=== PATIENT | female | born 1945 | race Two or more races ===

== ENCOUNTER 2025-01-03 17:23 | Inpatient (IN) | payer MEDICARE, BC ==
[~2025-01-03] VITALS: Ht 165.1 cm; Wt 96.2 kg
--- NOTE | 2025-01-03 17:51 | ED.PDOC ---
Altered Mental Status HPI Comments 79-year-old female brought in by EMS presents with a chief complaint of ALOC. Patient's last known well time was 21:00 last night. of patient found patient on the floor inbetween the bed and the commode. Patient had initial work up at [facility] and was transferred to our facility. CT head was nega tive. CBC was normal, CMP was normal, Ammonia is normal, BNP is elevated, Lactic Acid was elevated at 2.2. UA was negative. Patient remembers that she had a fall last night. 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 Family History Family History: Pt Confused Social History Smoker: Pt Confused Alcohol: Pt Confused Drugs: Pt Confused Lives In: Home Constitutional: denies: chills, diaphoresis, fatigue, fever, malaise, sweats, weakness, others EENTM: denies: blurred vision, double vision, ear bleeding, ear discharge, ear drainage, ear pain, ear ringing, eye pain, eye redness, hearing loss, mouth pain, mouth swelling, nasal discharge, nose bleeding, nose congestion, nose pain, photophobia, tearing, throat pain, throat swelling, voice changes, others Respiratory: denies: cough, hemoptysis, orthopnea, SOB at rest, shortness of breath, SOB with excertion, stridor, wheezing, others Cardiovascular: denies: chest pain, dizzy spells, diaphoresis, Dyspnea on exertion, edema, irregular heart beat, left arm pain, lightheadedness, palpitations, PND, syncope, others Gastrointestinal: denies: abdomen distended, abdominal pain, blood streaked bowels, constipated, diarrhea, dysphagia, difficulty swallowing, hematemesis, melena, nausea, poor appetite, poor fluid intake, rectal bleeding, rectal pain, vomiting, others Genitourinary: denies: abnormal vagina bleeding, burning, dyspareunia, dysuria, flank pain, frequency, hematuria, incontinence, pain, , vagina discharge, urgency, others Neurological: denies: dizziness, fainting, headache, left sided numbness, left sided weakness, numbness, paresthesia, pre-existing deficit, right sided numbness, right sided weakness, seizure, speech problems, tingling, tremors, weakness, others Musculoskeletal: denies: back pain, gout, joint pain, joint swelling, muscle pain, muscle stiffness, neck pain, others Integumetry: denies: bruises, change in color, change in hair/nails, dryness, laceration, lesions, lumps, rash, wounds, others Allergic/Immunocompromised: denies: Difficulty Healing, Frequent Infections, Hives, Itching, others Hematologic/Lymphatic: denies: anemia, blood clots, easy bleeding, easy bruising, swollen glands, others Endocrine: denies: excessive hunger, excessive sweating, excessive thirst, excessive urination, flushing, intolerance to cold, intolerance to heat, unexplained weight gain, unexplained weight loss, others Psychiatric: denies: anxiety, bipolar disorder, depression, hopeless, panic disorder, schizophrenia, sleepless, suicidal, others Unable to Obtain due to: Altered Mental Status All Other Systems: Reviewed and Negative Physical Exam General Appearance: No Apparent Distress, Normal HEENT: Normal ENT Inspection, Pharynx Normal, TMs Normal Neck: Full Range of Motion, Non-Tender, Normal, Normal Inspection Respiratory: Chest Non-Tender, Lungs Clear, No Accessory Muscle Use, No Respiratory Distress, Normal Breath Sounds Cardiovascular: No Edema, No JVD, No Murmur, No Gallop, Normal Peripheral Pulses, Regular Rate/Rhythm Breast Exam: Deferred Gastrointestinal: No Organomegaly, Non Tender, No Pulsatile Mass, Normal Bowel Sounds, Soft Genitalia: Deferred Pelvic: Deferred Rectal: Deferred Extremities: No calf tenderness, Normal capillary refill, Normal inspection, Normal range of motion, Non-tender, No pedal edema Musculoskeletal : Apperance: Normal Neurologic: Alert, methods examiner II-XII nml as Tested, No Motor Deficits, Normal Affect, Normal Mood, No Sensory Deficits Cerebellar Function: Normal Reflexes: Normal Skin: Dry, Normal Color, Warm Lymphatic: No Adenopathy Was a procedure done? Was a procedure done?: No Differential Diagnosis (ALOC) Differential Diagnosis: Dehydration, Hypoglycemia, DKA, Encephalopathy, Meningitis, Sepsis, Hypoxemia, Seizure, Closed Head Injury, CVA, Mass Lesion, SAH, Drug Overdose, Heart Failure X-Ray, Labs, Meds, VS Vital Signs Date Time Temp Pulse Resp B/P (MAP) Pulse Ox O2 Delivery O2 Flow Rate FiO2 01/03/25 17:57 98.3 58 19 117/57 (77) 98 98.3 01/03/25 17:57 58 19 98 Nasal Cannula 3.0 01/03/25 17:25 48 Time of 1ST Reevaluation: 18:11 Reevaluation 1ST: Unchanged Patient Education/Counseling: Diagnosis, Treatment, Need For Follow Up Family Education/Counseling: No Family Present Comments cbc, chem, ua, head ct, were all done and were unremarkable. her cxr shows vascular congestion and bnp was elevated. pt is much more alert now, but still has hesitancy when answering questions and slightly confused. pt will be admitted here for further evaluation of the fall, and encephalopathy. EMS mentioned that she did get a new benzo prescription, so potentially, this may melvin ve been the cause of a toxic encephalopathy SEPSIS Sepsis Screen Physician Orders Electrocardigram (01/03/25 17:44) Vital Signs Date Time Temp Pulse Resp B/P (MAP) Pulse Ox O2 Delivery O2 Flow Rate FiO2 01/03/25 17:57 98.3 58 19 117/57 (77) 98 98.3 01/03/25 17:57 58 19 98 Nasal Cannula 3.0 01/03/25 17:25 48 Departure 1 Departure Time of Disposition: 18:06 Impression: Primary Impression: Toxic encephalopathy Qualified Codes: G92.9 - Unspecified toxic encephalopathy Disposition: 09 ADMITTED INPATIENT Admit to: [facility] Condition: Stable Discharged With: Self Critical Care Note Critical Care Time?: No Stability Stability form required: No Heart Score Heart Score: Heart Score Response (Comments) Value History N/A 0 EKG N/A 0 Age N/A 0 Risk Factors N/A 0 Troponin N/A 0 Total 0 I personally scribed for VEENA MEDINA MD ([email or web address]) on 01/03/25 at 17:51. Electronically submitted by Rehan Aguilar ([email or web address]). VEENA MEDINA MD Jan 03, 2025 17:51
[2025-01-03] MEDS ORDERED: ACETAMINOPHEN 325 MG TAB PO PRN (21:30)
[2025-01-03] MEDS ORDERED: HYDROcodone-ACET 5/325MG TAB PO PRN (21:30)
[2025-01-03] MEDS ORDERED: DOCUSATE SOD 100 MG CAP PO PRN (21:30)
[2025-01-03] MEDS ORDERED: ONDANSETRON HCL 4 MG/2 ML VIAL IV PRN (21:30)
[2025-01-03] MEDS: SODIUM CHLORIDE 0.9% 1,000 ML IV SCH (21:39)
[2025-01-03 21:52] LABS: Potassium 3.9 mmol/L (3.5-5.1); Sodium 144 mmol/L (136-145)
[2025-01-03 21:53] LABS: Anion Gap 8 (5-15); Carbon Dioxide 26 mmol/L (20-31); Hematocrit 38.5 % (36.0-46.0); Hemoglobin 12.8 g/dL (12.2-16.2); Mean Corpuscular Hemoglobin 29.1 pg (28.0-32.0); Mean Corpuscular Volume 87.2 fL (80.0-100.0); Nucleated Red Blood Cells % 0.1 %
[2025-01-03 21:54] LABS: Calcium 9.8 mg/dL (8.7-10.4)
[2025-01-03 21:59] LABS: BUN/Creatinine Ratio 20.5 (10.0-20.0); Blood Urea Nitrogen 17 mg/dL (9-23)
[2025-01-03 22:01] LABS: Chloride 110 mmol/L (98-107); Glucose 127 mg/dL (74-106)
--- NOTE | 2025-01-03 22:38 | DVHHP2 ---
History of Present Illness Reason for Visit: Toxic encephalopathy History of Present Illness The patient is a 79-year-old female with past medical history of CHF, hypertension, hyperlipidemia, DM, and thyroid disease who presented to [facility] ED for evaluation of altered level of consciousness. As reported by , patient was found on the floor in between the bed and commode altered. Patient had initial work up at [facility] with negative head CT and was transferred to our facility. Patient was seen and evaluated in the ED, laboratory data shows WBC 6.8, platelets 180, sodium 144, potassium 3.9, BUN 17, creatinine 0.83, glucose 127, calcium 9.8, CK 292, troponin 72, blood pressure 121/57, heart rate 62, temperature 98.3 F, O2 saturation 96% on oxygen. Please see medication orders section in the computer. On my assessment, patient denied chest pain, no headache, dizziness, alert oriented x3, no shortness of breath, no nausea, no vomiting, no fever, no chills. Patient was admitted for further evaluation and medical management. Past Medical History CHF, HTN, HLD, DM, thyroid disease, Depression. Past Surgical History Denies all surgeries Family History Reviewed, noncontributory to the management of this case. Past Social History The patient lives at home, denies smoking, alcohol or illicit drugs abuse. Review of Systems Constitutional: Yes: Weakness; No: Fever, Chills, Sweats, Malaise, Other Eyes: No: Pain, Vision change, Conjunctivae inflammation, Eyelid inflammation, Other, Redness ENT: No: Ear pain, Ear discharge, Nose pain, Nose discharge, Nose congestion, Mouth pain, Mouth swelling, Throat pain, Throat swelling, Other Respiratory: Shortness of breath; No: Cough, Dry, SOB with excertion, Wheezing, Hemoptysis, Pleuritic Pain, Sputum, Wheezing, Other Cardiovascular: No: Chest Pain, Palpitations, Orthopnea, Paroxysmal Noc. Dyspnea, Edema, Lt Headedness, Other Gastrointestinal: No: Nausea, Vomiting, Abdominal Pain, Diarrhea, Constipation, Melena, Hematochezia, Other Genitourinary: No Dysuria, No Frequency, No Incontinence, No Hematuria, No R etention, No Other Musculoskeletal: No: other, neck pain, shoulder pain, arm pain, back pain, hand pain, leg pain, foot pain Skin: No: Rash, Lesions, Jaundice, Bruising, Other Neurological: Confusion; No: Weakness, Numbness, Incoordination, Change in speech, Seizures, Other Allergies: Coded Allergies: Penicillins (Verified Allergy, Unknown, 01/04/25) Sulfa Antibiotics (Verified Allergy, Unknown, 01/04/25) Medications Current Medications Medications Dose Ordered Sig/Massimo Route Start Time Stop Time Status Last Admin Dose Admin Aspirin 81 mg DAILY PO 01/04/25 10:00 Sodium Chloride 1,000 ml @ 60 mls/hr [id number] IV 01/03/25 21:30 01/03/25 21:39 60 MLS/HR Acetaminophen/ Hydrocodone Bitart 1 tab Q4HP PRN PO 01/03/25 21:30 Ondansetron HCl 4 mg Q4HP PRN IV 01/03/25 21:30 Docusate Sodium 100 mg BIDPRN PRN PO 01/03/25 21:30 Acetaminophen 650 mg Q6HP PRN PO 01/03/25 21:30 Exam Vital Signs Vital Signs Date Time Temp Pulse Resp B/P (MAP) Pulse Ox O2 Delivery O2 Flow Rate FiO2 01/03/25 22:00 98.5 63 16 128/57 (80) 98 98.5 01/03/25 19:20 Nasal Cannula* 2 28 General Appearance: Alert, Oriented X3, Cooperative, No acute distress HEENT: Atraumatic, PERRLA, EOMI, Mucous membr. moist/pink Respiratory: Clear to auscultation, Normal air movement Cardiovascular: Regular rate, Normal S1, Normal S2, No murmurs Abdominal: Normal bowel sounds, Soft, No tenderness, No hepatospenomegaly, No masses Extremities: No clubbing, No cyanosis, No edema, Normal pulses, No tenderness/swelling Skin: No rashes, No breakdown, No significant lesion Neuro: Normal speech, Normal tone, Sensation intact, Cranial nerves 3-12 NL, Reflexes 2+, Other (Generalized weakness) Psych/Mental Status: Mental status NL, Mood NL Labs/Xrays Labs Test 01/03/25 21:30 01/03/25 19:53 01/03/25 18:34 Range/Units Troponin I High Sensitivity 68 *H </=34 ng/L White Blood Count 6.8 4.4-10.8 10^3/uL Red Blood Count 4.41 4.0-5.20 10^6/uL Hemoglobin 12.8 12.2-16.2 g/dL Hematocrit 38.5 36.0-46.0 % Mean Corpuscular Volume 87.2 80.0-100.0 fL Mean Corpuscular Hemoglobin 29.1 28.0-32.0 pg Mean Corpuscular Hemoglobin Concent 33.3 32.0-36.0 g/dL Red Cell Distribution Width 15.4 H 11.8-14.3 % Platelet Count 180 140-450 10^3/uL Mean Platelet Volume 8.2 6.9-10.8 fL Neutrophils (%) (Auto) 72.8 37.0-80.0 % Lymphocytes (%) (Auto) 17.0 10.0-50.0 % Monocytes (%) (Auto) 8.1 0.0-12.0 % Eosinophils (%) (Auto) 1.5 0.0-7.0 % Basophils (%) (Auto) 0.6 0.0-2.0 % Neutrophils # (Auto) 5.0 1.6-8.6 10 ^3/uL Lymphocytes # (Auto) 1.2 0.4-5.4 10 ^3/uL Monocytes # (Auto) 0.5 0-1.3 10 ^3/uL Eosinophils # (Auto) 0.1 0-0.8 10 ^3/uL Basophils # (Auto) 0 0-0.2 10 ^3/uL Nucleated Red Blood Cells 0.1 % Sodium Level 144 136-145 mmol/L Potassium Level 3.9 3.5-5.1 mmol/L Chloride Level 110 H 98-107 mmol/L Carbon Dioxide Level 26 20-31 mmol/L Anion Gap 8 5-15 Blood Urea Nitrogen 17 9-23 mg/dL Creatinine 0.83 0.550-1.02 mg/dL Glomerular Filtration Rate Calc 72 >90 mL/min BUN/Creatinine Ratio 20.5 H 10.0-20.0 Serum Glucose 127 H 74-106 mg/dL Calcium Level 9.8 8.7-10.4 mg/dL Creatine Kinase 292 H 34-145 U/L Assessment/Plan Assessment/Plan Toxic encephalopathy Generalized weakness Unspecified toxic encephalopathy Plan 1. Admit to telemetry unit 2. Breathing treatment 3. Pain control management 4. Management of fluids and electrolytes 5. Consultation for hospitalist 6. Diagnostic tests chest x-ray 7. DVT prophylaxis-on SCDs 8. Repeat labs CBC, CMP in a.m. 9. Continue with current medical management 10. Treatment plan discussed with patient and RN. Patient verbalized under standing. Plan discussed with: Patient, Other (RN) My Orders Orders - VICENTA PETER DNP Procedure Category Date Status Time Aspirin Tablet PHA 01/04/25 In Process 10:00 Allergies SURJIT 01/03/25 In Process 21:26 Code Status CODE 01/03/25 Transmitted 21:26 Sodium Chloride 0.9% PHA 01/03/25 In Process 21:30 Oxygen Per Hour RT 01/03/25 Transmitted 21:26 Hydrocodone-Acet PHA 01/03/25 In Process 5/325mg Tab ([place] 21:30 Ondansetron Hcl PHA 01/03/25 In Process (Zofran) 21:30 Docusate Sodium PHA 01/03/25 In Process Capsule (Colace 21:30 Fall Risk Precautions SURJIT 01/03/[address] 21:26 Complete Blood Count LAB 01/04/25 Verified 04:00 Comprehensive LAB 01/04/25 Verified Metabolic Panel 04:00 Cardiac DIET 01/04/25 Transmitted Diet-2gna,Lofat,Lochol Breakfast Condition: Serious SURJIT 01/03/25 In Process 21:26 Acetaminophen Tablet PHA 01/03/25 In Process (Tylenol Tablet) 21:30 Maintain Bed Rest SUJRIT 01/03/25 In Process 21:26 Sequential SURJIT 01/03/25 In Process Compression Device Problem List: (1) Toxic encephalopathy (2) Generalized weakness (3) Unspecified toxic encephalopathy Date of Service: Jan 03, 2025 Billing Provider: VICENTA PETER DNP Common Visit Codes: [id number] INP/OBS CARE (HIGH) VICENTA PETER DNP Jan 03, 2025 22:38
[2025-01-03] MEDS ORDERED: MORPHINE SULFATE INJ 2 MG/ml SYRG IV PRN (22:45)
[2025-01-03] MEDS ORDERED: NITROGLYCERIN 0.4 MG SL TAB SL PRN (22:45)
[2025-01-04] MEDS ORDERED: DEXTROSE (50%) 50ML SYRG IV PRN (03:30)
[2025-01-04 06:38] LABS: Hematocrit 36.2 % (36.0-46.0); Hemoglobin 12.4 g/dL (12.2-16.2); Mean Corpuscular Hemoglobin 29.8 pg (28.0-32.0); Mean Corpuscular Volume 87.1 fL (80.0-100.0); Nucleated Red Blood Cells % 0.0 %
[2025-01-04 06:49] LABS: Alanine Aminotransferase 11 U/L (7-40); Albumin 3.6 g/dL (3.2-4.8); Alkaline Phosphatase 66 U/L (46-116); Anion Gap 7 (5-15); BUN/Creatinine Ratio 18.7 (10.0-20.0); Blood Urea Nitrogen 14 mg/dL (9-23); Calcium 8.8 mg/dL (8.7-10.4); Carbon Dioxide 28 mmol/L (20-31); Glucose 96 mg/dL (74-106); Potassium 4.7 mmol/L (3.5-5.1); Sodium 144 mmol/L (136-145); Total Protein 5.7 g/dL (5.7-8.2)
[2025-01-04 06:50] LABS: Bilirubin, Total 0.7 mg/dL (0.2-1.0)
[2025-01-04] MEDS: LEVOTHYROXINE SODIUM 25 MCG TAB PO SCH (06:57)
[2025-01-04] MEDS: InsuLIN REG 1unit/0.01ml Soln (100units/ml) SC SCH (07:00)
[2025-01-04 07:05] LABS: Chloride 109 mmol/L (98-107)
[2025-01-04] MEDS: ACCU-CHEK COMFORT CURVE STRIP VI SCH (07:08)
[2025-01-04] MEDS: SERTRALINE HCL 50 MG TAB PO SCH (07:39)
[2025-01-04 08:00] VITALS: PULSE 63; RESP 18; O2SAT 96
[2025-01-04 09:47] LABS: Urine Protein, UAD Negative (Negative)
[2025-01-04 11:21] LABS: Amphetamine Screen, Urine Neg (NEGATIVE); Barbiturate Scree,Urine Neg (NEGATIVE); Benzodiazephine Screen, Urine Pos (NEGATIVE); Cannabinoid Screen, Urine Neg (NEGATIVE); Cocaine Screen, Urine Neg (NEGATIVE); Opiate Scree,Urine Neg (NEGATIVE); Phencyclidine Screen, Urine Neg (NEGATIVE)
[2025-01-04 13:17] VITALS: BP 132/50; PULSE 55; RESP 18; TEMP 98.1; O2SAT 97
[2025-01-04 13:27] VITALS: BP 135/72; PULSE 60; RESP 18; TEMP 98.5; O2SAT 96
--- NOTE | 2025-01-04 13:38 | DVHPNRES ---
Progress Note Date Seen: Jan 04, 2025 Resident Creating Document: ROYA VENEGAS RESIDENT Medical Necessity Reason Pt with a Central, PICC or Fol: No Subjective Review of Systems Did not share any complaint at this moment Objective vital signs Vital Sign Date Time Temp Pulse Resp B/P (MAP) Pulse Ox O2 Delivery O2 Flow Rate FiO2 01/04/25 13:17 98.1 55 18 132/50 (77) 97 98.1 01/04/25 08:00 Room Air* 0 21 Total Intake and Output 01/03/25 01/03/25 01/04/25 15:00 23:00 07:00 Intake Total 60 ml 180 ml Balance 60 ml 180 ml medications Current Medications Medications Dose Ordered Sig/Massimo Route Start Time Stop Time Status Last Admin Dose Admin Aspirin 81 mg DAILY PO 01/04/25 10:00 01/04/25 07:39 81 MG Acetaminophen/ Hydrocodone Bitart 1 tab Q4HP PRN PO 01/03/25 21:30 Ondansetron HCl 4 mg Q4HP PRN IV 01/03/25 21:30 Docusate Sodium 100 mg BIDPRN PRN PO 01/03/25 21:30 Acetaminophen 650 mg Q6HP PRN PO 01/03/25 21:30 Nitroglycerin 0.4 mg Q5MINP PRN SL 01/03/25 22:45 Morphine Sulfate 2 mg Q30M PRN IV 01/03/25 22:45 Diagnostic Test (Pha) 1 strip ACHS 01/04/25 07:00 01/04/25 11:30 1 STRIP Insulin Human Regular ACHS SC 01/04/25 07:00 Dextrose 50 ml UD PRN IV 01/04/25 03:30 Levothyroxine Sodium 137 mcg QAM@0600 PO 01/04/25 06:00 01/04/25 06:57 137 MCG Sertraline HCl 50 mg DAILY PO 01/04/25 10:00 01/04/25 07:39 50 MG Furosemide 20 mg DAILY IV 01/05/25 10:00 UNV Examination GENERAL: Not in acute distress. Obese HEENT: EOMI, Moist mucous membranes. No scleral icterus. No cervical lymphadenopathy. LUNGS: Bilateral mild crackles. No accessory muscle use. CARDIOVASCULAR: Regular rate and rhythm. No murmur. No JVD. ABDOMEN: Soft, nontender and nondistended. No palpable masses. EXTREMITIES: B/L LE edema. Nontender. SKIN: No rashes or lesions. Warm. NEUROLOGIC: Alert and oriented X3 laboratory and microbiology Laboratory Tests 01/04/25 06:18 Test 01/04/25 06:18 Range/Units Serum Glucose 96 74-106 mg/dL Labs and/or images reviewed: Labs reviewed by me, Image(s) reviewed by me Problem List/Assessment/Plan Problem List/Assessment/Plan # Syncope likely vasovagal # Rule out Cardiac cause # Rule out neurological cause - Order brain MRI to rule out stroke - Neurology consult - Monitor for signs of dehydration and encourage fluid intake - EKG - Assess for any cardiac arrhythmias - Consult cardiology # Urinary Tract Infection (UTI) - Start antibiotic therapy for UTI - Urine culture. # Acute on Congestive systolic/ diastolic Heart Failure #Chronic hypoxic respiratory failure due to congestive heart failure; home oxygen 2 L/min - Continue current management, including home oxygen at 2 liters per minute - Monitor for signs of fluid overload or worsening heart failure - Echocardiogram # Hypothyroidism - Continue levothyroxine dose to 137mcg daily - Monitor for symptoms of hyperthyroidism (e.g., racing heart, weight loss) - TSH 0.03 - Ordered Free T4 - Follow up on thyroid function tests # Hypertension - Continue current antihypertensive medications - Monitor blood pressure # Arthritis - Assess pain levels and functional limitations - Consider pain management options if needed - Physical Therapy Goal of care discussed with the patient and family for 20 minutes: Full code Plan discussed with Dr. Flores. Plan discussed with: Patient, Spouse, Daughter, Other (Nurse) My Orders My Orders Orders - ROYA VENEGAS RESIDENT Procedure Category Date Status Time Electrocardigram EKG 01/04/25 Logged 13:02 Brain Head Wo Contrast MRI 01/04/25 Logged 13:02 Free T4 (Free LAB 01/04/25 In Process Thyroxine) 13:07 Furosemide Injection PHA 01/05/25 Logged (Lasix Injection) 10:00 * Cardiology Consult CONS 01/04/25 Transmitted 13:29 * Neurology Consult CONS 01/04/25 Transmitted 13:29 Echo 2d Mode Cardiac US 01/04/25 Logged DOP 13:30 Addendum Addendum Addendum I was physically present for the casper portions of the service provided to patient by THE RESIDENT. I have reviewed the documentation, discussed the case with resident and agree with the resident's documentation except as noted. Also the patient's clinical case was discussed with the patient's nurse. This medical document was created using an electronic medical record system with computerized dictation system. Although this document has been carefully reviewed, there might still be some phonetic and typographical errors. These areas are purely typographical due to imperfections of the software programs, and do not reflect any compromise in the patient's medical care. Late signature. Date of Service: Jan 04, 2025 Billing Provider: HARRIET FLORES MD Common Visit Codes: [id number] INP/OBS CARE(HIGH) Secondary Visit Codes: [id number] CARE PLAN 30 MINUTES (20 minutes) ROYA VENEGAS RESIDENT Jan 04, 2025 13:38 HARRIET FLORES MD Jan 05, 2025 16:10
--- NOTE | 2025-01-04 16:44 | DVH ---
EXAM: MRI BRAIN HEAD WO CONTRAST INDICATION: R/O stroke TECHNIQUE: Multiplanar, multisequence imaging of the brain without contrast. COMPARISON: None FINDINGS: [PARENCHYMA]: Infarct predominantly of the inferior anterior frontal lobe measuring 3.9 x 2.8 cm whic h may be contributory to expressive aphasia affecting Broca's area. Question punctate area of the add itional diffusion restriction along the left periventricular white matter. Associated FLAIR signal. N o susceptibility artifact. [VENTRICLES]: No hydrocephalus. [EXTRA-AXIAL SPACES]: No extra-axial fluid collections. [FLOW VOIDS]: The flow voids are intact. [EXTRA-CRANIAL STRUCTURES]: The bony structures are intact. Trace fluid in bilateral mastoid air cell s. IMPRESSION: 1. Infarct predominantly of the inferior anterior frontal lobe measuring 3.9 x 2.8 cm which may be co ntributory to expressive aphasia affecting Broca's area.
[2025-01-04 17:13] VITALS: BP 132/65; PULSE 72; RESP 18; TEMP 98.6; O2SAT 94
[2025-01-04 20:00] VITALS: PULSE 63; RESP 18; O2SAT 96
[2025-01-04 21:00] VITALS: BP 139/75; PULSE 65; RESP 18; TEMP 98.3; O2SAT 96
--- NOTE | 2025-01-04 21:28 | DVHSR ---
APPROVED REPORT EXAM: Two-dimensional and M-mode echocardiogram with Doppler and color Doppler. Blood Pressure: 132/50 mmHg INDICATION CHF RISK FACTORS Obesity: Height: 5'5", Weight: 216 DIMENSIONS LVDd4.6 (3.8-5.7cm)LA (2D)4.0 (1.9-4.0cm)Aortic Root3.4 (2.0-3.7cm) LVDs3.0 (2.5-4.0cm)LA (MM) (1.9-4.0cm)Aortic Cusp Exc1.9 (1.5-2.0cm) EF (%) 60.0 (55-70%)Rt. Atrium5.0 (1.9-4.0cm)Asc. Aorta cm IVSd1.2 (0.7-1.1cm)RV (D) (1.8-2.4cm) PWd1.2 (0.7-1.1cm) Mitral Valve MitralMitral Stenosis E wave1.10m/sMV Mean GR.mmHg A wave0.99m/sMV Peak GR.mmHg E/A ratio1.12D MVAcm2 DECEL [id number] 1/2 Timems Aortic Valve Aortic ValveAortic Stenosis V11.24m/Julia Mean GR.12mmHg V22.34m/Julia Peak GR.22mmHg LVOT Diameter2.1 (1.8-2.4cm)Doppler AVA1.83cm2 Pulmonic Valve V21.76m/s Tricuspid Valve TR Velocity2.25m/s [id number] Other Information Technically limited study due to body habitus. Conclusion MODERATE DEGREE LVH AND MODERATE DEGREE LV DIASTOLIC DYSFUNCTION LV EF IS 65% AND IS NORMAL SLIGHTLY DILATED LA MODERATELY DILATED RV HEAVILY CALCIFIED AORTIC LEAFLETS PEAK GRADIENT ACROSS AORTIC VALVE IS 22 MM OF HG AND MEAN GRADIENT IS 12 MM OF HG AORTIC VALVE AREA IS 1.83 CM SQUARE AND IS MILD AORTIC STENOSIS NO EFFUSION
[2025-01-05] VITALS (8 sets, daily range): BP systolic 118–147; BP diastolic 76–94; PULSE 55–109; RESP 16–20; TEMP 97.2–98.5; O2SAT 95–99
[2025-01-05 07:26] LABS: Potassium 4.4 mmol/L (3.5-5.1); Sodium 142 mmol/L (136-145)
[2025-01-05 07:27] LABS: Anion Gap 9 (5-15); Carbon Dioxide 26 mmol/L (20-31)
[2025-01-05 07:28] LABS: Calcium 9.3 mg/dL (8.7-10.4)
[2025-01-05 07:32] LABS: BUN/Creatinine Ratio 16.9 (10.0-20.0); Blood Urea Nitrogen 11 mg/dL (9-23); Chloride 107 mmol/L (98-107); Glucose 81 mg/dL (74-106)
[2025-01-05 07:44] LABS: Hematocrit 35.9 % (36.0-46.0); Hemoglobin 12.0 g/dL (12.2-16.2); Mean Corpuscular Hemoglobin 29.4 pg (28.0-32.0); Mean Corpuscular Volume 88.1 fL (80.0-100.0); Nucleated Red Blood Cells % 0.5 %
[2025-01-05] MEDS ORDERED: cefTRIAXone 1GM/50ML D5W 50 ML IV SCH (09:00)
[2025-01-05] MEDS: FUROSEMIDE 20 MG/2 ML VIAL IV SCH (10:33)
--- NOTE | 2025-01-05 14:20 | DVHPN2 ---
Subjective Patient denies any symptoms at this time. Reviewed: Care Plan, H&P, Labs, Medications Changes from previous H/P or p: No Changes General: Per HPI Eyes: No Pain, No Vision change, No Conjunctivae inflammation, No Eyelid inflammation, No Other, No Redness ENT: No Ear pain, No Ear discharge, No Nose pain, No Nose discharge, No Nose congestion, No Mouth pain, No Mouth swelling, No Throat pain, No Throat swelling, No Other Cardiovascular: No Chest Pain, No Palpitations, No Orthopnea, No Paroxysmal Noc. Dyspnea, No Edema, No Lt Headedness, No Other Respiratory: No Cough, No Dry; Shortness of breath; No SOB with excertion, No Wheezing, No Hemoptysis, No Pleuritic Pain, No Sputum, No Other Gastrointestinal: No Nausea, No Vomiting, No Abdominal Pain, No Diarrhea, No Constipation, No Melena, No Hematochezia, No Other Genitourinary: No Dysuria, No Frequency, No Incontinence, No Hematuria, No Retention, No Other Musculoskeletal: No other, No neck pain, No shoulder pain, No arm pain, No back pain, No hand pain, No leg pain, No foot pain Skin: No Rash, No Lesions, No Jaundice, No Bruising, No Other Objective Vitals Vital Signs Date Time Temp Pulse Resp B/P (MAP) Pulse Ox O2 Delivery O2 Flow Rate FiO2 01/05/25 13:00 98.1 63 18 118/82 (94) 95 98.1 01/05/25 08:10 Nasal Cannula* 2 28 Intake/Output Intake and Output 01/05/25 07:00 Intake Total 1190 ml Output Total 900 ml Balance 290 ml Intake Oral 950 ml IV Total 240 ml Output Urine Total 900 ml # Bowel Movements 1 General Appearance: Alert, Oriented X3, Cooperative, mild distress HEENT: Atraumatic, PERRLA Cardiovascular: Normal S1, Normal S2 Back: Flank Tenderness, Midline Tenderness Musculoskeletal: Normal sensory function, Normal motor function Neuro: Normal speech Skin: Dry, Intact Psych/Mental Status: Mental status NL, Mood NL Medications Current Medications Medications Dose Ordered Sig/Massiom Route Start Time Stop Time Status Last Admin Dose Admin Aspirin 81 mg DAILY PO 01/04/25 10:00 01/05/25 10:33 81 MG Acetaminophen/ Hydrocodone Bitart 1 tab Q4HP PRN PO 01/03/25 21:30 Ondansetron HCl 4 mg Q4HP PRN IV 01/03/25 21:30 Docusate Sodium 100 mg BIDPRN PRN PO 01/03/25 21:30 Acetaminophen 650 mg Q6HP PRN PO 01/03/25 21:30 Nitroglycerin 0.4 mg Q5MINP PRN SL 01/03/25 22:45 Morphine Sulfate 2 mg Q30M PRN IV 01/03/25 22:45 Diagnostic Test (Pha) 1 strip ACHS 01/04/25 07:00 01/05/25 10:45 1 STRIP Insulin Human Regular ACHS SC 01/04/25 07:00 Dextrose 50 ml UD PRN IV 01/04/25 03:30 Levothyroxine Sodium 137 mcg QAM@0600 PO 01/04/25 06:00 01/05/25 05:59 137 MCG Sertraline HCl 50 mg DAILY PO 01/04/25 10:00 01/05/25 10:32 50 MG Furosemide 20 mg DAILY IV 01/05/25 10:00 01/05/25 10:33 20 MG Levofloxacin/ Dextrose 100 ml @ 100 mls/hr DAILY IV 01/05/25 10:00 01/05/25 10:22 100 MLS/HR Ceftriaxone Sodium 50 ml @ 100 mls/hr DAILY@09 IV 01/05/25 09:00 UNV Atorvastatin Calcium 40 mg HS PO 01/05/25 22:00 Laboratory Results Laboratory Tests 01/05/25 05:04 Chemistry Test 01/05/25 05:04 Calcium Level 9.3 mg/dL (8.7-10.4) Lipid panel Test 01/05/25 05:04 Cholesterol Level Pending HDL Cholesterol Pending Triglycerides Level Pending Urinalysis Test 01/04/25 09:24 Urine Color Yellow (Yellow) Urine Clarity Hazy (Clear) H Urine pH 5.5 (5.0-9.0) Urine Specific [place] 1.024 (1.001-1.035) Urine Protein Negative (Negative) Urine Ketones Trace (Negative) Urine Blood Negative /uL (Negative) Urine Nitrite 2+ (Negative) H Urine Bilirubin Negative (Negative) Urine Urobilinogen Normal mg/dL (Negative) Urine Leukocyte Esterase 2+ /uL (Negative) Urine RBC 2 /hpf (0 - 4) Urine Microscopic WBC 21 /HPF (0-5) H Urine Squamous Epithelial Cells Few /hpf (<5) Urine Bacteria Few /hpf (None Seen) H Urine Mucus Few (None Seen) Urine Glucose Normal mg/dL (Normal) Microbiology Microbiology Date/Time Source Procedure Growth Status 01/04/25 09:24 Urine - [place] Urine Culture - Preliminary Resulted Labs and/or images reviewed: Labs reviewed by me, Image(s) reviewed by me Assessment/Plan Assessment/Plan Impression: -acute CVA -obesity -probable degenerative joint disease in right hip and right knee -dyslipidemia -primary hypertension -complicated cystitis -toxic encephalopathy ruled out. Altered mental status secondary to acute CVA Plan: -neurology consultation -MRI reviewed. Acute stroke noted -continue aspirin -add atorvastatin -add Questran for noted BMs -continue Levaquin, urine culture pending -carotid Doppler study, lipid panel -long discussion made with patient's family regarding MRI findings. All questions answered Total time spent with patient discussing and formulating plan of care: 35 minutes. Total time spent with patient and family regarding advance care plannin minutes. This medical document was created using an electronic medical record system with [employer] dictation system. Although this document has been carefully reviewed, there may still be some phonetic and typographical errors. These areas are purely typographical due to imperfections of the software programs, and do not reflect any compromise in the patient's medical care. Plan discussed with: Patient, Spouse, Daughter, Other (RN) My Orders Orders - CRISTIN DALE NP Procedure Category Date Status Time Carotid Duplx W Color US 01/05/25 Logged DOP 13:55 Lipid Panel LAB 01/05/25 In Process 13:55 Atorvastatin (Lipitor) PHA 01/05/25 In Process 22:00 Pt Request For Service PT 01/05/25 Logged 13:55 Date of Service: Jan 05, 2025 Billing Provider: CRISTIN DALE NP Common Visit Codes: 92946-[id number] INP/OBS CARE(HIGH) Secondary Visit Codes: [id number] CARE PLAN 30 MINUTES CRISTIN DALE NP Jan 05, 2025 14:20
[2025-01-05 14:27] LABS: Triglycerides 85 mg/dL (< 150)
[2025-01-05 14:29] LABS: Cholesterol 112 mg/dL (< 200); HDL Cholesterol 41 mg/dL (40-59)
--- NOTE | 2025-01-05 14:40 | DVH ---
Carotid Duplex Date: 01/05/2025 02:14 PM Clinical History: acute cva; syncope Comparison: None Technique: Duplex Doppler evaluation of the extracranial carotid and vertebral arteries including col or Doppler and spectral/pulsed waveform analysis was performed. Findings: RIGHT SIDE: The peak systolic velocities are 76 cm/s in the distal CCA and 0.9 cm/s in the proximal ICA.The ICA/C CA ratio is less than 1. The external carotid artery is patent with peak systolic velocity of 55 cm/s proximally. There is appropriate antegrade flow in the right vertebral artery. LEFT SIDE: The peak systolic velocities are 71 cm/s in the distal CCA and 67 cm/s in the proximal ICA.. The ICA/ CCA ratio is less than 1. The external carotid artery is patent with peak systolic velocity of 65 cm/s proximally. There is appropriate antegrade flow in the left vertebral artery. Mild atherosclerotic vascular disease of the left carotid bulb. IMPRESSION: No hemodynamically significant stenosis noted in the right carotid system. No hemodynamically significant stenosis noted in the left carotid system. Reference: Radiology 2003; [id number]
[2025-01-05] MEDS: CHOLESTYRAMINE 4 GM POWDER PO SCH (16:00)
[2025-01-05] MEDS: ATORVASTATIN 20 MG TAB PO SCH (22:07)
--- NOTE | 2025-01-05 23:03 | DVHINCON2 ---
Date of service: Jan 05, [address] Koch Reason for Consultation Syncope History of Present Illness Ms. Suggs is a 79 years old right-handed female with a history of hypertension, dyslipidemia, congestive heart failure on home oxygen, hypothyroidism, depression, obesity, she was brought to the [facility] on 01/03/2025 from [facility] with a chief complaint of altered mental status at that time, she is alert and fully oriented, she provided the following history According to ER note, the patient was found on the floor between the bed and bedside commode, mentally altered, she woke up after she was brought to [facility]. But the patient relates she remembers getting up in the night for bedside commode and she fell down, she attempted several time but not able to get up and she was on the floor for 8-9 hours before found her. But she also claimed that she did not remember much about that morning, she had never had similar problems previously. In the hospital, the patient was found to have acute left hemisphere stroke. In the [facility], she had elevated lactic acid: 2.2 At home, she was on aspirin 81 mg daily, rosuvastatin 5 mg daily She and her sleep in different room, she used a adjustable bed and she sleeps with elevated bed head, she is not aware of he snores, she has no problem with insomnia, and she sleeps up to 10 hours each night but she is not refreshed on waking up, she naps 1-2 hours every day. She has not had sleep medicine evaluation UDS, 12/26/2024: benzo diazepam Urinalysis, 01/04/2025: WBC: 21, urine leukocyte esterase: 2+, urine nitrate: 2+ CBC, 01/04/2025: Unremarkable CMP, 01/04/2025: Unremarkable TG/HDL/LDL/HDL, 01/05/2025: 85/112/59/41 TSH, 01/04/2025: 0.03 Free T4, 01/04/2025: Echocardiogram, 01/04/2025: MODERATE DEGREE LVH AND MODERATE DEGREE LV DIASTOLIC DYSFUNCTION LV EF IS 65% AND IS NORMAL SLIGHTLY DILATED LA MODERATELY DILATED RV HEAVILY CALCIFIED AORTIC LEAFLETS PEAK GRADIENT ACROSS AORTIC VALVE IS 22 MM OF HG AND MEAN GRADIENT IS 12 MM OF HG AORTIC VALVE AREA IS 1.83 CM SQUARE AND IS MILD AORTIC STENOSIS NO EFFUSION Carotid Doppler, 01/05/2025: No hemodynamically significant stenosis noted in the right carotid system. No hemodynamically significant stenosis noted in the left carotid system MRI head, 01/04/2025: Infarct predominantly of the inferior anterior frontal lobe measuring 3.9 x 2.8 cm which may be contributory to expressive aphasia affecting Broca's area. Past Medical History Hypertension, dyslipidemia, congestive heart failure on home oxygen, hypothyroidism, depression, obesity Past Surgical History Cholecystectomy, tonsillectomy Family History: Arthritis 19 CHILD Family History Heart attack, mother had DVT after hip surgery Social History He has no history of smoking, drug or alcohol abuse Allergies: Coded Allergies: Penicillins (Verified Allergy, Unknown, 01/04/25) Sulfa Antibiotics (Verified Allergy, Unknown, 01/04/25) Current Medications Current Medications Medications (Trade) Dose Ordered Sig/Massimo Route PRN Reason Start Time Stop Time Status Last Admin Furosemide (Lasix Injection) 20 mg DAILY IV 01/05/25 10:00 01/05/25 10:33 Levofloxacin/ Dextrose 100 ml @ 100 mls/hr DAILY IV 01/05/25 10:00 01/05/25 10:22 Ceftriaxone Sodium 50 ml @ 100 mls/hr DAILY@09 IV 01/05/25 09:00 UNV Atorvastatin Calcium (Lipitor) 40 mg HS PO 01/05/25 22:00 01/05/25 22:07 Cholestyramine Resin (Questran Powder) 4 gm DAILY@11 PO 01/05/25 14:15 01/05/25 16:00 Review of Systems As above, the other systems are negative Vital Signs Vital Signs Date Time Temp Pulse Resp B/P (MAP) Pulse Ox O2 Delivery O2 Flow Rate FiO2 01/05/25 21:00 97.2 63 16 126/82 (97) 96 97.2 01/05/25 08:10 Nasal Cannula* 2 28 Physical Exam GENERAL EXAM: General: the patient is well developed and nourished. No acute distress. HEENT: Normocephalic, neck is supple, no carotid bruits. No mass. RESPIRATORY: Normal respiratory effort with symmetrical lung expansion. Lungs clear to auscultation. CARDIOVASCULAR: Regular rate and rhythm with no murmurs. S1, S2. ABDOMEN: Soft, nontender, normal bowel sound NEUROLOGICAL: MENTAL STATUS: Awake and alert. Oriented to person, place, time and general circumstances. Able to give personal history. SPEECH, LANGUAGE, HIGHER CORTICAL FUNCTION: no aphasia or dysathria. CRANIAL NERVES: #2: Intact visual marks to confrontation. The optic discs were sharp. #3,4,6: Pupils are equal, round and reactive. EOMs full and conjugate. Mild bilateral gaze evoked nystagmus. #5: Facial sensation intact in all three divisions bilaterally. Mandibular strength intact. #7: Facial muscles symmetrical and strength intact. #8: Hearing grossly normal to voice. #9,10: Uvula and soft palate rise in the midline. Swallow and voice are normal. #11: Trapezius and sternomastoid strength intact bilaterally. #12: Tongue midline. No fasciculations or atrophy. SENSATION: Diminished pinprick and light touch in the right leg only MOTOR: Normal tone in the upper and lower extremity. Normal muscle bulk. No fasc iculations. No abnormal movements or posturing. Muscle strength of the major groups in the upper extremities is 5/5. Muscle strength of the major groups in the lower extremities is 5/5. REFLEXES: Deep tendon reflexes are symmetrical. No pathological reflexes. CEREBELLAR/COORDINATION: Finger to nose is normal bilaterally. GAIT/STATION: deferred. Labs/Diagnostic Data Labs Test 01/05/25 22:06 01/05/25 05:04 01/04/25 09:24 01/04/25 06:18 Range/Units POC Glucose 114 H 70-106 mg/dl White Blood Count 4.7 4.4-10.8 10^3/uL Red Blood Count 4.08 4.0-5.20 10^6/uL Hemoglobin 12.0 L 12.2-16.2 g/dL Hematocrit 35.9 L 36.0-46.0 % Mean Corpuscular Volume 88.1 80.0-100.0 fL Mean Corpuscular Hemoglobin 29.4 28.0-32.0 pg Mean Corpuscular Hemoglobin Concent 33.4 32.0-36.0 g/dL Red Cell Distribution Width 15.1 H 11.8-14.3 % Platelet Count 100 L 140-450 10^3/uL Mean Platelet Volume 9.2 6.9-10.8 fL Neutrophils (%) (Auto) 68.8 37.0-80.0 % Lymphocytes (%) (Auto) 18.4 10.0-50.0 % Monocytes (%) (Auto) 9.8 0.0-12.0 % Eosinophils (%) (Auto) 2.3 0.0-7.0 % Basophils (%) (Auto) 0.7 0.0-2.0 % Neutrophils # (Auto) 3.2 1.6-8.6 10 ^3/uL Lymphocytes # (Auto) 0.9 0.4-5.4 10 ^3/uL Monocytes # (Auto) 0.5 0-1.3 10 ^3/uL Eosinophils # (Auto) 0.1 0-0.8 10 ^3/uL Basophils # (Auto) 0 0-0.2 10 ^3/uL Nucleated Red Blood Cells 0.5 % Sodium Level 142 136-145 mmol/L Potassium Level 4.4 3.5-5.1 mmol/L Chloride Level 107 98-107 mmol/L Carbon Dioxide Level 26 20-31 mmol/L Anion Gap 9 5-15 Blood Urea Nitrogen 11 9-23 mg/dL Creatinine 0.65 0.550-1.02 mg/dL Glomerular Filtration Rate Calc 90 >90 mL/min BUN/Creatinine Ratio 16.9 10.0-20.0 Serum Glucose 81 74-106 mg/dL Calcium Level 9.3 8.7-10.4 mg/dL Triglycerides Level 85 < 150 mg/dL Cholesterol Level 112 < 200 mg/dL LDL Cholesterol 59 < 100 mg/dL HDL Cholesterol 41 40-59 mg/dL Urine Color Yellow Yellow Urine Clarity Hazy H Clear Urine pH 5.5 5.0-9.0 Urine Specific [place] 1.024 1.001-1.035 Urine Protein Negative Negative Urine Ketones Trace Negative Urine Blood Negative Negative /uL Urine Nitrite 2+ H Negative Urine Bilirubin Negative Negative Urine Urobilinogen Normal Negative mg/dL Urine Leukocyte Esterase 2+ Negative /uL Urine RBC 2 0 - 4 /hpf Urine Microscopic WBC 21 H 0-5 /HPF Urine Squamous Epithelial Cells Few <5 /hpf Urine Bacteria Few H None Seen /hpf Urine Mucus Few None Seen Urine Glucose Normal Normal mg/dL Urine Opiates Screen Neg NEGATIVE Urine Fentanyl Screen Neg NEGATIVE Urine Barbiturates Screen Neg NEGATIVE Urine Phencyclidine Screen Neg NEGATIVE Urine Amphetamines Screen Neg NEGATIVE Urine Benzodiazepines Screen Pos NEGATIVE Urine Cocaine Screen Neg NEGATIVE Urine Cannabinoids Screen Neg NEGATIVE Total Bilirubin 0.7 0.2-1.0 mg/dL Aspartate Amino Transferase (AST) 20 <34 U/L Alanine Aminotransferase (ALT) 11 7-40 U/L Alkaline Phosphatase 66 46-116 U/L Total Protein 5.7 5.7-8.2 g/dL Albumin 3.6 3.2-4.8 g/dL Thyroid Stimulating Hormone (TSH) 0.03 L 0.55-4.78 uIU/mL Free Thyroxine (T4) Calculated 1.32 0.89-1.76 ng/dL Test 01/03/25 21:30 01/03/25 19:53 01/03/25 18:34 Range/Units Troponin I High Sensitivity 68 *H </=34 ng/L B-Type Natriuretic Peptide 305.47 0-100 pg/mL Creatine Kinase 292 H 34-145 U/L Microbiology Date/Time Source Procedure Growth Status 01/04/25 09:24 Urine - [place] Urine Culture - Preliminary Resulted Assessment Acute stroke, MRI confirmed Altered mental status Metabolic encephalopathy Stroke Rule out acute symptomatic seizure Urinary tract infection Lactic acidosis according to [facility] reports Hypersomnia Rule out sleep apnea Obesity Plan/Recommendation Monitoring Supportive treatment Telemetry Aspirin 81 mg daily Lipitor 20 mg daily DVT prophylaxis GI prophylaxis Hypersomnia precautions discussed Oxygen Weight control Need sleep symptoms Further address possible sleep-related breathing disorder as outpatient Prognosis: Poor This medical document was created using an electronic medical record system with [employer] dictation system. Although this document has been carefully reviewed, there may still be some phonetic and typographical errors. These areas are purely typographical due to imperfections of the software programs, and do not reflect any compromise in the patient's medical care. Plan discussed with: Patient, Other ELIZABETH HENDERSON MD Jan 05, 2025 23:03
[2025-01-06] VITALS (7 sets, daily range): BP systolic 117–148; BP diastolic 59–87; PULSE 52–64; RESP 16–20; TEMP 97–98.1; O2SAT 97–98
--- NOTE | 2025-01-06 14:45 | DVHPN2 ---
Progress Note - Dictate Date Seen: Jan 06, 2025 Medical Necessity Reason Pt with a Central, PICC or Fol: No Subjective Ms. Suggs is a 79 years old right-handed female with a history of hypertension, dyslipidemia, congestive heart failure on home oxygen, hypothyroidism, depression, obesity, she was brought to the [facility] on 01/03/2025 from [facility] with a chief complaint of altered mental status I have seen examined the patient, I have asked her nurse and daughter, the case was In[place]. He is doing fine, alert and fully oriented, no new complaints Her daughter is not aware of her sleep symptoms UDS, 12/26/2024: benzo diazepam Urinalysis, 01/04/2025: WBC: 21, urine leukocyte esterase: 2+, urine nitrate: 2+ CBC, 01/04/2025: Unremarkable CMP, 01/04/2025: Unremarkable TG/HDL/LDL/HDL, 01/05/2025: 85/112/59/41 TSH, 01/04/2025: 0.03 Free T4, 01/04/2025: Echocardiogram, 01/04/2025: MODERATE DEGREE LVH AND MODERATE DEGREE LV DIASTOLIC DYSFUNCTION LV EF IS 65% AND IS NORMAL SLIGHTLY DILATED LA MODERATELY DILATED RV HEAVILY CALCIFIED AORTIC LEAFLETS PEAK GRADIENT ACROSS AORTIC VALVE IS 22 MM OF HG AND MEAN GRADIENT IS 12 MM OF HG AORTIC VALVE AREA IS 1.83 CM SQUARE AND IS MILD AORTIC STENOSIS NO EFFUSION Carotid Doppler, 01/05/2025: No hemodynamically significant stenosis noted in the right carotid system. No hemodynamically significant stenosis noted in the left carotid system MRI head, 01/04/2025: Infarct predominantly of the inferior anterior frontal lobe measuring 3.9 x 2.8 cm which may be contributory to expressive aphasia affecting Broca's area. vital signs Vital Sign Date Time Temp Pulse Resp B/P (MAP) Pulse Ox O2 Delivery O2 Flow Rate FiO2 01/06/25 13:00 97.6 61 20 117/74 (88) 97 97.6 01/06/25 08:05 Nasal Cannula* 2 28 Total Intake and Output 01/05/25 01/05/25 01/06/25 15:00 23:00 07:00 Intake Total 300 ml 800 ml 500 ml Output Total 1800 ml 750 ml Balance 300 ml -1000 ml -250 ml medications Current Medications Medications Dose Ordered Sig/Massimo Route Start Time Stop Time Status Last Admin Dose Admin Aspirin 81 mg DAILY PO 01/04/25 10:00 01/06/25 09:32 81 MG Acetaminophen/ Hydrocodone Bitart 1 tab Q4HP PRN PO 01/03/25 21:30 Ondansetron HCl 4 mg Q4HP PRN IV 01/03/25 21:30 Docusate Sodium 100 mg BIDPRN PRN PO 01/03/25 21:30 Acetaminophen 650 mg Q6HP PRN PO 01/03/25 21:30 Nitroglycerin 0.4 mg Q5MINP PRN SL 01/03/25 22:45 Morphine Sulfate 2 mg Q30M PRN IV 01/03/25 22:45 Diagnostic Test (Pha) 1 strip ACHS 01/04/25 07:00 01/06/25 11:13 1 STRIP Insulin Human Regular ACHS SC 01/04/25 07:00 Dextrose 50 ml UD PRN IV 01/04/25 03:30 Levothyroxine Sodium 137 mcg QAM@0600 PO 01/04/25 06:00 01/06/25 05:38 137 MCG Sertraline HCl 50 mg DAILY PO 01/04/25 10:00 01/06/25 09:28 50 MG Furosemide 20 mg DAILY IV 01/05/25 10:00 01/06/25 09:36 20 MG Levofloxacin/ Dextrose 100 ml @ 100 mls/hr DAILY IV 01/05/25 10:00 01/06/25 09:36 100 MLS/HR Ceftriaxone Sodium 50 ml @ 100 mls/hr DAILY@09 IV 01/05/25 09:00 UNV Atorvastatin Calcium 40 mg HS PO 01/05/25 22:00 01/05/25 22:07 40 MG Cholestyramine Resin 4 gm DAILY@11 PO 01/05/25 14:15 01/06/25 10:55 4 GM objective General: the patient is well developed and nourished. No acute distress. MENTAL STATUS: Awake and alert. Oriented to person, place, time and general circumstances SPEECH, LANGUAGE, HIGHER CORTICAL FUNCTION: no aphasia or dysathria. CRANIAL NERVES: Pupils are equal, round and reactive. EOMs full and conjugate. Mild bilateral gaze evoked nystagmus. Facial sensation intact in all three divisions bilaterally. Mandibular strength intact. Facial muscles symmetrical and strength intact. SENSATION: Diminished pinprick and light touch in the right leg only MOTOR: Normal tone in the upper and lower extremity. Normal muscle bulk. No fasciculations. No abnormal movements or posturing. Muscle strength of the major groups in the extremities is 5/5. REFLEXES: Deep tendon reflexes are symmetrical. No pathological reflexes. CEREBELLAR/COORDINATION: Finger to nose is normal bilaterally. GAIT/STATION: deferred. laboratory and microbiology Laboratory Tests 01/05/25 05:04 Test 01/05/25 05:04 Range/Units Serum Glucose 81 74-106 mg/dL Problem List Acute stroke, MRI confirmed Altered mental status Metabolic encephalopathy Stroke Rule out acute symptomatic seizure Urinary tract infection Lactic acidosis according to [facility] report Hypersomnia Rule out sleep apnea Obesity Assessment/Plan Monitoring Supportive treatment Telemetry Aspirin 81 mg daily, ok to use Plavix 75mg Qd Lipitor 20 mg daily DVT prophylaxis GI prophylaxis Hypersomnia precautions discussed Oxygen Weight control Need sleep symptoms Have discussed about stroke risk factors Further address possible sleep-related breathing disorder as outpatient This medical document was created using an electronic medical record system with [employer] dictation system. Although this document has been carefully reviewed, there may still be some phonetic and typographical errors. These areas are purely typographical due to imperfections of the software programs, and do not reflect any compromise in the patient's medical care. Prognosis poor Plan discussed with: Patient, Daughter, Other ELIZABETH HENDERSON MD Jan 06, 2025 14:45
--- NOTE | 2025-01-06 15:20 | DVHCONRES ---
Date Seen: Jan 06, 2025 Resident Creating Document: JAIME ALONSO RESDIENT History of Present Illness The patient is a 79-year-old female with past medical history of CHF, hypertension, hyperlipidemia, DM, and thyroid disease who presented to [facility] ED for evaluation of altered level of consciousness. As reported by , patient was found on the floor in between the bed and commode altered. Patient had initial work up at [facility] with negative head CT and was transferred to our facility. Patient seen and examined at the bedside. Patient is feeling better since admission and aphasia has improved. Family History: Arthritis 19 CHILD Allergies: Coded Allergies: Penicillins (Verified Allergy, Unknown, 01/04/25) Sulfa Antibiotics (Verified Allergy, Unknown, 01/04/25) Home Meds Active Scripts Levofloxacin Hemihydrate (LEVAQUIN 500 MG) 500 Mg Tab, 1 TAB PO DAILY for 5 Days, #5 TAB Prov:CRISTIN DALE BOOK SOLICITOR 01/06/25 Clopidogrel Bisulfate (Plavix) 75 Mg Tab, 1 TAB PO DAILY for 30 Days, #30 TAB 1 Refill Prov:CRISTIN DALE BOOK SOLICITOR 01/06/25 Current Medications Current Medications Medications (Trade) Dose Ordered Sig/Massimo Route PRN Reason Start Time Stop Time Status Last Admin Atorvastatin Calcium (Lipitor) 40 mg HS PO 01/05/25 22:00 01/05/25 22:07 Vital Signs Vital Signs Date Time Temp Pulse Resp B/P (MAP) Pulse Ox O2 Delivery O2 Flow Rate FiO2 01/06/25 13:00 97.6 61 20 117/74 (88) 97 97.6 01/06/25 08:05 Nasal Cannula* 2 28 Physical Exam General Appearance: Alert, Oriented X3, Cooperative, No acute distress HEENT: Atraumatic, PERRLA, EOMI, Mucous membrane moist/pink Respiratory: Clear to auscultation, Normal air movement Cardiovascular: Regular rate, Normal S1, Normal S2, No murmurs, no chest wall tenderness Abdominal: Normal bowel sounds, Soft, No tenderness, No hepatospenomegaly, No masses Extremities: No clubbing, No cyanosis, No edema, Normal pulses, No tenderness/swelling Skin: No rashes, No breakdown, No significant lesion Neuro: Normal gait, Normal speech, Strength at 5/5 X4 ext, Normal tone, Sensation intact, Cranial nerves 3-12 NL, Reflexes 2+ Psych/Mental Status: Mental status NL, Mood NL Labs/Diagnostic Data Labs Test 01/06/25 11:03 01/05/25 05:04 01/04/25 09:24 01/04/25 06:18 Range/Units POC Glucose 122 H 70-106 mg/dl White Blood Count 4.7 4.4-10.8 10^3/uL Red Blood Count 4.08 4.0-5.20 10^6/uL Hemoglobin 12.0 L 12.2-16.2 g/dL Hematocrit 35.9 L 36.0-46.0 % Mean Corpuscular Volume 88.1 80.0-100.0 fL Mean Corpuscular Hemoglobin 29.4 28.0-32.0 pg Mean Corpuscular Hemoglobin Concent 33.4 32.0-36.0 g/dL Red Cell Distribution Width 15.1 H 11.8-14.3 % Platelet Count 100 L 140-450 10^3/uL Mean Platelet Volume 9.2 6.9-10.8 fL Neutrophils (%) (Auto) 68.8 37.0-80.0 % Lymphocytes (%) (Auto) 18.4 10.0-50.0 % Monocytes (%) (Auto) 9.8 0.0-12.0 % Eosinophils (%) (Auto) 2.3 0.0-7.0 % Basophils (%) (Auto) 0.7 0.0-2.0 % Neutrophils # (Auto) 3.2 1.6-8.6 10 ^3/uL Lymphocytes # (Auto) 0.9 0.4-5.4 10 ^3/uL Monocytes # (Auto) 0.5 0-1.3 10 ^3/uL Eosinophils # (Auto) 0.1 0-0.8 10 ^3/uL Basophils # (Auto) 0 0-0.2 10 ^3/uL Nucleated Red Blood Cells 0.5 % Sodium Level 142 136-145 mmol/L Potassium Level 4.4 3.5-5.1 mmol/L Chloride Level 107 98-107 mmol/L Carbon Dioxide Level 26 20-31 mmol/L Anion Gap 9 5-15 Blood Urea Nitrogen 11 9-23 mg/dL Creatinine 0.65 0.550-1.02 mg/dL Glomerular Filtration Rate Calc 90 >90 mL/min BUN/Creatinine Ratio 16.9 10.0-20.0 Serum Glucose 81 74-106 mg/dL Calcium Level 9.3 8.7-10.4 mg/dL Triglycerides Level 85 < 150 mg/dL Cholesterol Level 112 < 200 mg/dL LDL Cholesterol 59 < 100 mg/dL HDL Cholesterol 41 40-59 mg/dL Urine Color Yellow Yellow Urine Clarity Hazy H Clear Urine pH 5.5 5.0-9.0 Urine Specific [place] 1.024 1.001-1.035 Urine Protein Negative Negative Urine Ketones Trace Negative Urine Blood Negative Negative /uL Urine Nitrite 2+ H Negative Urine Bilirubin Negative Negative Urine Urobilinogen Normal Negative mg/dL Urine Leukocyte Esterase 2+ Negative /uL Urine RBC 2 0 - 4 /hpf Urine Microscopic WBC 21 H 0-5 /HPF Urine Squamous Epithelial Cells Few <5 /hpf Urine Bacteria Few H None Seen /hpf Urine Mucus Few None Seen Urine Glucose Normal Normal mg/dL Urine Opiates Screen Neg NEGATIVE Urine Fentanyl Screen Neg NEGATIVE Urine Barbiturates Screen Neg NEGATIVE Urine Phencyclidine Screen Neg NEGATIVE Urine Amphetamines Screen Neg NEGATIVE Urine Benzodiazepines Screen Pos NEGATIVE Urine Cocaine Screen Neg NEGATIVE Urine Cannabinoids Screen Neg NEGATIVE Total Bilirubin 0.7 0.2-1.0 mg/dL Aspartate Amino Transferase (AST) 20 <34 U/L Alanine Aminotransferase (ALT) 11 7-40 U/L Alkaline Phosphatase 66 46-116 U/L Total Protein 5.7 5.7-8.2 g/dL Albumin 3.6 3.2-4.8 g/dL Thyroid Stimulating Hormone (TSH) 0.03 L 0.55-4.78 uIU/mL Free Thyroxine (T4) Calculated 1.32 0.89-1.76 ng/dL Test 01/03/25 21:30 01/03/25 19:53 01/03/25 18:34 Range/Units Troponin I High Sensitivity 68 *H </=34 ng/L B-Type Natriuretic Peptide 305.47 0-100 pg/mL Creatine Kinase 292 H 34-145 U/L Microbiology Date/Time Source Procedure Growth Status 01/05/25 10:40 Nose MRSA Screen - Final Complete 01/04/25 09:24 Urine - [place] Urine Culture - Final Escherichia coli Complete Assessment Ischemic stroke with motor aphasia Motor aphasia, due to ischemic stroke Acute on chronic diastolic heart failure History of hypertension Dyslipidemia Hypothyroidism Obstructive sleep apnea on 2 L of oxygen at home * EKGs shows normal sinus rhythm with no significant ST or T-wave changes * Trop I is mildly raised at 68, stable * Echo shows moderate degree LVH with moderate degree LV diastolic dysfunction, LVEF 65%. Moderate dilated RV with mild aortic stenosis Plan/recommendation (Case discussed with Dr. Flores) * Continue aspirin and atorvastatin * Started on Jardiance and spironolactone * Rest of plan per primary team Thank you for allowing us to take care of your patient, please call back if you have any question/concern. Plan discussed with: Patient, Other (RN) JAIME ALONSO Jan 06, 2025 15:20
[2025-01-06] MEDS ORDERED: LEVO500T91 PO (15:21)
[2025-01-06] MEDS ORDERED: CLOP75TA28 PO (15:21)
--- NOTE | 2025-01-06 15:26 | DVHDS2 ---
Discharge Summary Date of Admission Jan 03, 2025 at 22:37 Date of Discharge: Jan 06, 2025 Admitting Diagnosis Toxic encephalopathy Labs/Diagnostic Data: Laboratory Results Test 01/06/25 11:03 01/05/25 05:04 01/04/25 09:24 01/04/25 06:18 POC Glucose 122 mg/dl (70-106) White Blood Count 4.7 10^3/uL (4.4-10.8) Red Blood Count 4.08 10^6/uL (4.0-5.20) Hemoglobin 12.0 g/dL (12.2-16.2) Hematocrit 35.9 % (36.0-46.0) Mean Corpuscular Volume 88.1 fL (80.0-100.0) Mean Corpuscular Hemoglobin 29.4 pg (28.0-32.0) Mean Corpuscular Hemoglobin Concent 33.4 g/dL (32.0-36.0) Red Cell Distribution Width 15.1 % (11.8-14.3) Platelet Count 100 10^3/uL (140-450) Mean Platelet Volume 9.2 fL (6.9-10.8) Neutrophils (%) (Auto) 68.8 % (37.0-80.0) Lymphocytes (%) (Auto) 18.4 % (10.0-50.0) Monocytes (%) (Auto) 9.8 % (0.0-12.0) Eosinophils (%) (Auto) 2.3 % (0.0-7.0) Basophils (%) (Auto) 0.7 % (0.0-2.0) Neutrophils # (Auto) 3.2 10 ^3/uL (1.6-8.6) Lymphocytes # (Auto) 0.9 10 ^3/uL (0.4-5.4) Monocytes # (Auto) 0.5 10 ^3/uL (0-1.3) Eosinophils # (Auto) 0.1 10 ^3/uL (0-0.8) Basophils # (Auto) 0 10 ^3/uL (0-0.2) Nucleated Red Blood Cells 0.5 % Sodium Level 142 mmol/L (136-145) Potassium Level 4.4 mmol/L (3.5-5.1) Chloride Level 107 mmol/L (98-107) Carbon Dioxide Level 26 mmol/L (20-31) Anion Gap 9 (5-15) Blood Urea Nitrogen 11 mg/dL (9-23) Creatinine 0.65 mg/dL (0.550-1.02) Glomerular Filtration Rate Calc 90 mL/min (>90) BUN/Creatinine Ratio 16.9 (10.0-20.0) Serum Glucose 81 mg/dL (74-106) Calcium Level 9.3 mg/dL (8.7-10.4) Triglycerides Level 85 mg/dL (< 150) Cholesterol Level 112 mg/dL (< 200) LDL Cholesterol 59 mg/dL (< 100) HDL Cholesterol 41 mg/dL (40-59) Urine Color Yellow (Yellow) Urine Clarity Hazy (Clear) Urine pH 5.5 (5.0-9.0) Urine Specific [place] 1.024 (1.001-1.035) Urine Protein Negative (Negative) Urine Ketones Trace (Negative) Urine Blood Negative /uL (Negative) Urine Nitrite 2+ (Negative) Urine Bilirubin Negative (Negative) Urine Urobilinogen Normal mg/dL (Negative) Urine Leukocyte Esterase 2+ /uL (Negative) Urine RBC 2 /hpf (0 - 4) Urine Microscopic WBC 21 /HPF (0-5) Urine Squamous Epithelial Cells Few /hpf (<5) Urine Bacteria Few /hpf (None Seen) Urine Mucus Few (None Seen) Urine Glucose Normal mg/dL (Normal) Urine Opiates Screen Neg (NEGATIVE) Urine Fentanyl Screen Neg (NEGATIVE) Urine Barbiturates Screen Neg (NEGATIVE) Urine Phencyclidine Screen Neg (NEGATIVE) Urine Amphetamines Screen Neg (NEGATIVE) Urine Benzodiazepines Screen Pos (NEGATIVE) Urine Cocaine Screen Neg (NEGATIVE) Urine Cannabinoids Screen Neg (NEGATIVE) Total Bilirubin 0.7 mg/dL (0.2-1.0) Aspartate Amino Transferase (AST) 20 U/L (<34) Alanine Aminotransferase (ALT) 11 U/L (7-40) Alkaline Phosphatase 66 U/L (46-116) Total Protein 5.7 g/dL (5.7-8.2) Albumin 3.6 g/dL (3.2-4.8) Thyroid Stimulating Hormone (TSH) 0.03 uIU/mL (0.55-4.78) Free Thyroxine (T4) Calculated 1.32 ng/dL (0.89-1.76) Test 01/03/25 21:30 01/03/25 19:53 01/03/25 18:34 Troponin I High Sensitivity 68 ng/L (</=34) B-Type Natriuretic Peptide 305.47 pg/mL (0-100) Creatine Kinase 292 U/L (34-145) Other Laboratory Tests 01/05/25 05:04 Brief Hx & Hospital Course: History of Present Illness The patient is a 79-year-old female with past medical history of CHF, hypertension, hyperlipidemia, DM, and thyroid disease who presented to [facility] ED for evaluation of altered level of consciousness. As reported by , patient was found on the floor in between the bed and commode altered. Patient had initial work up at [facility] with negative head CT and was transferred to our facility. Patient was seen and evaluated in the ED, laboratory data shows WBC 6.8, platelets 180, sodium 144, potassium 3.9, BUN 17, creatinine 0.83, glucose 127, calcium 9.8, CK 292, troponin 72, blood pressure 121/57, heart rate 62, temperature 98.3 F, O2 saturation 96% on oxygen. Please see medication orders section in the computer. On my assessment, patient denied chest pain, no headache, dizziness, alert oriented x3, no shortness of breath, no nausea, no vomiting, no fever, no chills. Patient was admitted for further evaluation and medical management. Course of hospitalization: Patient had MRI of the brain which revealed CVA. Patient's altered mental status well as facial droop, slurred speech has all resolved. Neurology consultation was obtained. Carotid Doppler study, unremarkable. Echocardiogram, unremarkable. Patient will be discharged home, and will be continued on antiplatelet therapy, switching from aspirin to Plavix 75 mg p.o. daily. Patient will also continue with antibiotic therapy, Levaquin 500 mg p.o. daily for noted UTI. Patient will continue all other previous home medications including statin. Discussion was made with all diagnostic findings and treatment plan with patient and family. They are agreeable to current discharge plan. All questions answered. Physical examination General: Alert and Oriented x3. No acute distress. Well-nourished. Eyes: EOMI. Anicteric. HENT: Moist mucous membranes. Lungs: Clear to auscultation bilaterally. No accessory muscle use. Cardiovascular: Regular rate and rhythm. No murmur. No JVD. Abdomen: Soft, non-tender and non-distended. No palpable masses. Extremities: No edema. Non-tender. Skin: No rashes or lesions. Warm. Neurologic: No focal neurological deficits. CN II-XII grossly intact, but not individually tested. Psychiatric: Cooperative. Appropriate mood and affect. Total time spent with patient discussing and formulating plan of care: 35 minutes. This medical document was created using an electronic medical record system with shoutr dictation system. Although this document has been carefully reviewed, there may still be some phonetic and typographical errors. These areas are purely typographical due to imperfections of the software programs, and do not reflect any compromise in the patient's medical care. Consults/Reason for consult Neurology: Acute CVA Condition at Discharge: Guarded Final Diagnosis/Problems List Acute CVA Secondary diagnosis: -obesity -probable degenerative joint disease in right hip and right knee -dyslipidemia -primary hypertension -complicated cystitis -toxic encephalopathy ruled out. Altered mental status secondary to acute CVA Discharge Disposition: Home Discharge Instruct/Medications Diet: Cardiac 2g Na,low cholest Activity: No Restrictions, As Tolerated Follow Up/Referral: Follow up with PCP in 1-2 weeks Medications: Stop aspirin, continue all previous home medications including lovastatin Plavix 75 mg p.o. daily Levaquin 500 mg p.o. daily x5 days Scheduled Clopidogrel Bisulfate (Plavix), 1 TAB PO DAILY Levofloxacin Hemihydrate (Levaquin 500 Mg), 1 TAB PO DAILY 36 Discharge Statement: "Patient was advised to return to the ER or call 911 if any headaches, dizziness, shortness of breath, chest pain, abdominal pain, bleeding, fevers, or worsening of medical condition. Patient was counseled about treatment plan, medications, possible side effects, patientverbalized understanding. All questions were answered to the best of my ability. This discharge took greater then 30 minutes in planning, reviewing documentation, counseling the patient, and discussing with other team members." ASSESSMENT ASSESSMENT Assessment Acute CVA Date of Service: Jan 06, 2025 Billing Provider: CRISTIN DALE NP Common Visit Codes: 68662-XIO/OBS DISCH DAY >30min CRISTIN DALE NP Jan 06, 2025 15:26
--- NOTE | 2025-01-06 18:42 | DVHEEG2 ---
Neurology EEG Procedural Note Procedural Note EXAM DATE: 01/06/2025 REFERRING DOCTOR: Dr. Henderson TECHNIQUE: Eighteen channels of EEG, 2 channels of EOG, and 1 channel of EKG were recorded using the International 10/20 system. CLINICAL DATA: The patient was referred for an EEG evaluation for the evidence of seizure disorder. MEDICATIONS: See the chart BACKGROUND ACTIVITY: While the patient was awake, the background activity consisted of well regulated 12 Hz rhythmic waveforms, symmetrically distributed over both posterior quadrants and was reactive to eye opening. ACTIVATION: Hyperventilation: Not done Photic Stimulation: No photic convulsive response Sleep: Not seen IMPRESSION: This is a normal EEG. No focal, lateralized, or epileptiform features are noted. If clinically indicated to rule out a seizure disorder, recommend repeat EEG with sleep deprivation. The EKG channel showed an irregular heart rate of 66/min[place] [address]. ELIZABETH HENDERSON MD Jan 06, 2025 18:42
--- NOTE | 2025-01-07 00:17 | DVHINCON2 ---
Date of service: Jan 06, 2025 Referring Physician August Reason for Consultation Syncope, CHF History of Present Illness This is a 79-year-old female with past medical history of CHF, hypertension, hyperlipidemia, DM, and thyroid disease who presented to [facility] ED for evaluation of altered level of consciousness. As reported by , patient was found on the floor in between the bed and commode altered. Patient had initial work up at [facility] with negative head CT and was transferred to our facility. EKGs shows normal sinus rhythm with no significant ST or T-wave changes. Trop I is mildly raised at 68, stable. Echo shows moderate degree LVH with moderate degree LV diastolic dysfunction, LVEF 65%. Moderate dilated RV with mild aortic stenosis. Patient was admitted to the hospital. I am asked to consult on this patient. Family History: Arthritis 19 CHILD Allergies: Coded Allergies: Penicillins (Verified Allergy, Unknown, 01/04/25) Sulfa Antibiotics (Verified Allergy, Unknown, 01/04/25) Home Meds Active Scripts Levofloxacin Hemihydrate (LEVAQUIN 500 MG) 500 Mg Tab, 1 TAB PO DAILY for 5 Days, #5 TAB Prov:CRISTIN DALE TUNNELING MACHINE OPERATOR 01/06/25 Clopidogrel Bisulfate (Plavix) 75 Mg Tab, 1 TAB PO DAILY for 30 Days, #30 TAB 1 Refill Prov:CRISTIN DALE TUNNELING MACHINE OPERATOR 01/06/25 Review of Systems Constitutional: Yes: Weakness; No: Fever, Chills, Sweats, Malaise, Other Eyes: No: Pain, Vision change, Conjunctivae inflammation, Eyelid inflammation, Other, Redness ENT: No: Ear pain, Ear discharge, Nose pain, Nose discharge, Nose congestion, Mouth pain, Mouth swelling, Throat pain, Throat swelling, Other Respiratory: Shortness of breath; No: Cough, Dry, SOB with excertion, Wheezing, Hemoptysis, Pleuritic Pain, Sputum, Wheezing, Other Cardiovascular: No: Chest Pain, Palpitations, Orthopnea, Paroxysmal Noc. Dyspnea, Edema, Lt Headedness, Other Gastrointestinal: No: Nausea, Vomiting, Abdominal Pain, Diarrhea, Constipation, Melena, Hematochezia, Other Genitourinary: No Dysuria, No Frequency, No Incontinence, No Hematuria, No Retention, No Other Musculoskeletal: No: other, neck pain, shoulder pain, arm pain, back pain, hand pain, leg pain, foot pain Skin: No: Rash, Lesions, Jaundice, Bruising, Other Neurological: Confusion; No: Weakness, Numbness, Incoordination, Change in speech, Seizures, Other Vital Signs Vital Signs Date Time Temp Pulse Resp B/P (MAP) Pulse Ox O2 Delivery O2 Flow Rate FiO2 01/06/25 16:56 98.1 59 18 98 01/06/25 16:35 122/78 (93) 01/06/25 08:05 Nasal Cannula* 2 28 Physical Exam GENERAL: Alert and oriented x 3. No acute distress. EYES: PERRL, EOMI. Anicteric. HENT: Moist mucous membranes. LUNGS: Clear to auscultation bilaterally. CARDIOVASCULAR: Regular rate and rhythm. ABDOMEN: Soft, non-tender and non-distended. EXTREMITIES: No edema. NEUROLOGIC: No focal neurological deficits. SKIN: Warm, dry. Labs/Diagnostic Data Labs Test 01/06/25 11:03 01/05/25 05:04 01/04/25 09:24 01/04/25 06:18 Range/Units POC Glucose 122 H 70-106 mg/dl White Blood Count 4.7 4.4-10.8 10^3/uL Red Blood Count 4.08 4.0-5.20 10^6/uL Hemoglobin 12.0 L 12.2-16.2 g/dL Hematocrit 35.9 L 36.0-46.0 % Mean Corpuscular Volume 88.1 80.0-100.0 fL Mean Corpuscular Hemoglobin 29.4 28.0-32.0 pg Mean Corpuscular Hemoglobin Concent 33.4 32.0-36.0 g/dL Red Cell Distribution Width 15.1 H 11.8-14.3 % Platelet Count 100 L 140-450 10^3/uL Mean Platelet Volume 9.2 6.9-10.8 fL Neutrophils (%) (Auto) 68.8 37.0-80.0 % Lymphocytes (%) (Auto) 18.4 10.0-50.0 % Monocytes (%) (Auto) 9.8 0.0-12.0 % Eosinophils (%) (Auto) 2.3 0.0-7.0 % Basophils (%) (Auto) 0.7 0.0-2.0 % Neutrophils # (Auto) 3.2 1.6-8.6 10 ^3/uL Lymphocytes # (Auto) 0.9 0.4-5.4 10 ^3/uL Monocytes # (Auto) 0.5 0-1.3 10 ^3/uL Eosinophils # (Auto) 0.1 0-0.8 10 ^3/uL Basophils # (Auto) 0 0-0.2 10 ^3/uL Nucleated Red Blood Cells 0.5 % Sodium Level 142 136-145 mmol/L Potassium Level 4.4 3.5-5.1 mmol/L Chloride Level 107 98-107 mmol/L Carbon Dioxide Level 26 20-31 mmol/L Anion Gap 9 5-15 Blood Urea Nitrogen 11 9-23 mg/dL Creatinine 0.65 0.550-1.02 mg/dL Glomerular Filtration Rate Calc 90 >90 mL/min BUN/Creatinine Ratio 16.9 10.0-20.0 Serum Glucose 81 74-106 mg/dL Calcium Level 9.3 8.7-10.4 mg/dL Triglycerides Level 85 < 150 mg/dL Cholesterol Level 112 < 200 mg/dL LDL Cholesterol 59 < 100 mg/dL HDL Cholesterol 41 40-59 mg/dL Urine Color Yellow Yellow Urine Clarity Hazy H Clear Urine pH 5.5 5.0-9.0 Urine Specific [place] 1.024 1.001-1.035 Urine Protein Negative Negative Urine Ketones Trace Negative Urine Blood Negative Negative /uL Urine Nitrite 2+ H Negative Urine Bilirubin Negative Negative Urine Urobilinogen Normal Negative mg/dL Urine Leukocyte Esterase 2+ Negative /uL Urine RBC 2 0 - 4 /hpf Urine Microscopic WBC 21 H 0-5 /HPF Urine Squamous Epithelial Cells Few <5 /hpf Urine Bacteria Few H None Seen /hpf Urine Mucus Few None Seen Urine Glucose Normal Normal mg/dL Urine Opiates Screen Neg NEGATIVE Urine Fentanyl Screen Neg NEGATIVE Urine Barbiturates Screen Neg NEGATIVE Urine Phencyclidine Screen Neg NEGATIVE Urine Amphetamines Screen Neg NEGATIVE Urine Benzodiazepines Screen Pos NEGATIVE Urine Cocaine Screen Neg NEGATIVE Urine Cannabinoids Screen Neg NEGATIVE Total Bilirubin 0.7 0.2-1.0 mg/dL Aspartate Amino Transferase (AST) 20 <34 U/L Alanine Aminotransferase (ALT) 11 7-40 U/L Alkaline Phosphatase 66 46-116 U/L Total Protein 5.7 5.7-8.2 g/dL Albumin 3.6 3.2-4.8 g/dL Thyroid Stimulating Hormone (TSH) 0.03 L 0.55-4.78 uIU/mL Free Thyroxine (T4) Calculated 1.32 0.89-1.76 ng/dL Test 01/03/25 21:30 01/03/25 19:53 01/03/25 18:34 Range/Units Troponin I High Sensitivity 68 *H </=34 ng/L B-Type Natriuretic Peptide 305.47 0-100 pg/mL Creatine Kinase 292 H 34-145 U/L Microbiology Date/Time Source Procedure Growth Status 01/05/25 10:40 Nose MRSA Screen - Final Complete 01/04/25 09:24 Urine - [place] Urine Culture - Final Escherichia coli Complete Assessment Ischemic stroke with motor aphasia. Motor aphasia, due to ischemic stroke. Acute on chronic diastolic heart failure. History of hypertension. Dyslipidemia. Hypothyroidism. Obstructive sleep apnea on 2 L of oxygen at home. Plan/Recommendation I agree with your ongoing assessment and care of plan. Patient has been seen by Sola Trejo, resident on my behalf. We have discussed the plan with the patient. Continue aspirin and atorvastatin. Started on Jardiance and spironolactone. Rest of plan per primary team. Additional plan as per the hospital course. Plan discussed with: Patient VON ESTRADA MD Jan 07, 2025 00:16
--- NOTE | 2025-01-07 09:03 | ECG ---
[facility] [place] Test Date: 2025-01-03 Test Time: 17:20:41 Pat Name: BRIANDA LITTLEJOHN Department: ED Room: [facility] Gender: F [employer]: ORLY : 1945 Requested By: VEENA MEDINA Order Number: [id number] Reading MD: Measurements Intervals [place] Rate: P: 0 SD: 0 QRS: 0 QRSD: 0 T: 0 QT: 0 QTc: 0 Interpretive Statements All 12 leads are missing Please click the below link to view image of tracing.
== END 2025-01-06 18:56 | disposition home or self-care (01) | DRG 64 ==
LOC: EDBD 17:23 → ER 17:23 → OVERFLOW 22:37 → TELE-WESTW 01-04 11:44
PROVIDERS: ADMIT Nurse Practitioner Acute Care; ATTEND Nurse Practitioner Acute Care
DX: I63.9 Cerebral infarction, unspecified (principal); J96.21 Acute and chronic respiratory failure with hypoxia; E87.20 Acidosis, unspecified; R47.01 Aphasia; I11.0 Hypertensive heart disease with heart failure; M16.11 Unilateral primary osteoarthritis, right hip; N30.90 Cystitis, unspecified without hematuria; E78.5 Hyperlipidemia, unspecified; E03.9 Hypothyroidism, unspecified; G47.33 Obstructive sleep apnea (adult) (pediatric); E66.9 Obesity, unspecified; M17.11 Unilateral primary osteoarthritis, right knee; E11.9 Type 2 diabetes mellitus without complications; G47.10 Hypersomnia, unspecified; F32.A Depression, unspecified; Z88.0 Allergy status to penicillin; Z79.899 Other long term (current) drug therapy; Z90.49 Acquired absence of other specified parts of digestive tract; Z82.49 Family history of ischemic heart disease and other diseases of the circulatory system; Z88.1 Allergy status to other antibiotic agents; Z68.36 Body mass index [BMI] 36.0-36.9, adult
CPT/HCPCS: 36415; 70551; 80048; 80053; 80061; 80307; 81001; 82550; 82962; 83880; 84439; 84443; 84484; 85025; 87081; 87086; 87088; 87186; 93005; 93306; 93886; 95819; 96360; 97163; G0378; J1956